=== PATIENT | male | born 1985 | race Caucasian/White ===

== ENCOUNTER 2023-12-24 01:41 | Emergency (ER) | payer OTHER, BC ==
[2023-12-24] MEDS ORDERED: Sodium Chloride 0.9% 2.5 ML Syringe FLUSH PRN (02:14)
[2023-12-24] MEDS ORDERED: Sodium Chloride 0.9% 10 ML Syringe FLUSH PRN (02:14)
[2023-12-24] MEDS ORDERED: Ketorolac 30 MG/ML SDV IVPUSH ONE (02:14)
[2023-12-24] MEDS ORDERED: Sodium Chloride 0.9% 1,000 ML IV ONE (02:14)
[2023-12-24 02:27] LABS: APPEARANCE,URINE CLEAR; BILIRUBIN,URINE NEGATIVE (NEGATIVE); COLOR,URINE YELLOW; GLUCOSE,URINE NEGATIVE (NEGATIVE); KETONES,URINE NEGATIVE (NEGATIVE); LEUKOCYTE ESTERASE,URINE NEGATIVE (NEGATIVE); NITRITE,URINE NEGATIVE (NEGATIVE); OCCULT BLOOD,URINE NEGATIVE (NEGATIVE); PROTEIN,URINE NEGATIVE (NEGATIVE); UROBILINOGEN,URINE 0.2 EU/dL (<2.0)
[2023-12-24 02:31] LABS: BASOPHILS ABSOLUTE AUTO 0.03 K/uL (0.00-0.20); BASOPHILS PERCENT AUTO 0.4 % (0.0-1.0); EOSINOPHILS ABSOLUTE AUTO 0.15 K/uL (0.00-0.45); EOSINOPHILS PERCENT AUTO 1.9 % (0.0-6.0); HEMATOCRIT 45.5 % (42.0-52.0); HEMOGLOBIN 15.5 g/dL (14.0-18.0); IMMATURE GRAN ABSOLUTE AUTO 0.01 K/uL (0.00-0.05); IMMATURE GRAN PERCENT AUTO 0.1 % (0.0-0.4); LYMPHOCYTES ABSOLUTE AUTO 2.47 K/uL (1.00-4.80); LYMPHOCYTES PERCENT AUTO 31.5 % (24.0-44.0); MEAN CORPUSCULAR HEMOGLOBIN 30.4 pg (28.0-32.0); MEAN CORPUSCULAR HGB CONC 34.1 g/dL (32.0-36.0); MEAN CORPUSCULAR VOLUME 89.2 fL (83.0-99.0); MEAN PLATELET VOLUME 9.4 fL (9.4-12.4); MONOCYTES PERCENT AUTO 10.2 % (0.0-8.0); NEUTROPHILS ABSOLUTE AUTO 4.39 K/uL (1.80-7.70); NEUTROPHILS PERCENT AUTO 55.9 % (41.0-71.0); PLATELET COUNT,PLT 235 K/uL (150-400); WHITE BLOOD CELL COUNT,WBC 7.85 K/uL (3.9-11.3)
[2023-12-24 02:38] LABS: RBC,URINE NONE SEEN (0-2/HPF); WBC,URINE NONE SEEN (0-5/HPF)
[2023-12-24 02:39] LABS: BACTERIA,URINE RARE (NEGATIVE); EPITHELIAL CELLS,URINE RARE (NONE-FEW)
[2023-12-24 02:54] LABS: A/G RATIO 1.1 (0.9-1.6); ALBUMIN 3.6 g/dL (3.4-5.0); BILIRUBIN TOTAL 0.4 mg/dL (0.2-1.0); CALCIUM 8.5 mg/dL (8.5-10.1); CREATININE 1.1 mg/dL (0.8-1.3); EST CRCL DRUG DOSING (CG) 105.86 mL/min; POTASSIUM,K 3.6 mmol/L (3.5-5.1)
[2023-12-24] MEDS ORDERED: Iopamidol 755 MG/ML 500 ML Multipack Bottle IVPUSH ONE (03:07)
[2023-12-24] MEDS ORDERED: Naloxone 0.4 MG/ML SDV IVPUSH PRN (03:11)
[2023-12-24] MEDS ORDERED: Morphine 4 MG/ML Syringe IVPUSH PRN (03:11)
== END 2023-12-24 04:36 | disposition home or self-care (01) ==
LOC: MW.ED 01:41
DX: K63.89 Other specified diseases of intestine (principal)
CPT/HCPCS: 36415; 74177; 80053; 81001; 85025; 96374; 96375; 99284; J1885; J2270; J3490; J7030; Q9967

== ENCOUNTER 2024-04-27 02:21 | Emergency (ER) | payer OTHER, BC ==
[2024-04-27] MEDS: Aspirin 81 MG Tab.Chew PO ONE (02:37)
[2024-04-27] MEDS: Sodium Chloride 0.9% 10 ML Syringe FLUSH PRN (02:38)
[2024-04-27] MEDS: Sodium Chloride 0.9% 2.5 ML Syringe FLUSH PRN (02:38)
[2024-04-27 02:45] LABS: BASOPHILS ABSOLUTE AUTO 0.02 K/uL (0.00-0.20); BASOPHILS PERCENT AUTO 0.4 % (0.0-1.0); EOSINOPHILS ABSOLUTE AUTO 0.13 K/uL (0.00-0.45); EOSINOPHILS PERCENT AUTO 2.4 % (0.0-6.0); HEMATOCRIT 43.8 % (42.0-52.0); HEMOGLOBIN 14.8 g/dL (14.0-18.0); IMMATURE GRAN ABSOLUTE AUTO 0.01 K/uL (0.00-0.05); IMMATURE GRAN PERCENT AUTO 0.2 % (0.0-0.4); LYMPHOCYTES ABSOLUTE AUTO 2.07 K/uL (1.00-4.80); LYMPHOCYTES PERCENT AUTO 37.6 % (24.0-44.0); MEAN CORPUSCULAR HEMOGLOBIN 30.5 pg (28.0-32.0); MEAN CORPUSCULAR HGB CONC 33.8 g/dL (32.0-36.0); MEAN CORPUSCULAR VOLUME 90.3 fL (83.0-99.0); MEAN PLATELET VOLUME 9.5 fL (9.4-12.4); MONOCYTES ABSOLUTE AUTO 0.57 K/uL (0.00-0.80); MONOCYTES PERCENT AUTO 10.4 % (0.0-8.0); PLATELET COUNT,PLT 223 K/uL (150-400); RED BLOOD CELL COUNT 4.85 M/uL (4.52-5.90)
[2024-04-27 03:00] LABS: INR 0.95 (0.86-1.11); PTT,PARTIAL THROMBOPLSTIN TIME 26.1 SEC (23.9-30.7)
[2024-04-27 03:13] LABS: A/G RATIO 0.9 (0.9-1.6); BILIRUBIN TOTAL 0.1 mg/dL (0.2-1.0); CARBON DIOXIDE,CO2 24.5 mmol/L (21.0-32.0); CREATININE 1.2 mg/dL (0.8-1.3); EST CRCL DRUG DOSING (CG) 91.61 mL/min; POTASSIUM,K 3.8 mmol/L (3.5-5.1); PROTEIN TOTAL,TP 6.3 g/dL (6.4-8.2)
[2024-04-27] MEDS: Ketorolac 30 MG/ML SDV IVPUSH ONE (03:20)
== END 2024-04-27 05:15 | disposition home or self-care (01) ==
LOC: MW.ED 02:21
DX: R07.89 Other chest pain (principal); Z75.8 Other problems related to medical facilities and other health care
CPT/HCPCS: 36415; 71045; 80053; 82550; 84484; 85025; 85610; 85730; 93005; 96374; 99285; A9270; J1885; J3490; 99283

== ENCOUNTER 2025-03-25 23:21 | Emergency (ER) | payer OTHER, BC ==
[2025-03-26] MEDS: Benzocaine 20% Topical Spray UD MUCMEM ONE (00:53)
[2025-03-26] MEDS: Lidocaine 2% Viscous Solution 15 ML UD PO ONE (00:53)
[2025-03-26] MEDS: Acetaminophen/HYDROcodone 325-5 MG Tab PO ONE (01:53)
[2025-03-26] MEDS: Ibuprofen 800 MG Tab PO ONE (01:53)
== END 2025-03-26 02:03 | disposition home or self-care (01) ==
LOC: MW.ED 23:21
DX: K08.89 Other specified disorders of teeth and supporting structures (principal); Z75.3 Unavailability and inaccessibility of health-care facilities
CPT/HCPCS: 99282; A9270; 99283

== ENCOUNTER 2025-09-01 11:36 | Emergency (ER) | payer BC, OTHER ==
[2025-09-01 11:52] LABS: BASOPHILS ABSOLUTE AUTO 0.03 K/uL (0.00-0.20); BASOPHILS PERCENT AUTO 0.4 % (0.0-1.0); EOSINOPHILS ABSOLUTE AUTO 0.09 K/uL (0.00-0.45); EOSINOPHILS PERCENT AUTO 1.2 % (0.0-6.0); IMMATURE GRAN ABSOLUTE AUTO 0.02 K/uL (0.00-0.05); IMMATURE GRAN PERCENT AUTO 0.3 % (0.0-0.4); LYMPHOCYTES ABSOLUTE AUTO 2.89 K/uL (1.00-4.80); LYMPHOCYTES PERCENT AUTO 37.9 % (24.0-44.0); MEAN PLATELET VOLUME 9.5 fL (9.4-12.4); MONOCYTES ABSOLUTE AUTO 0.53 K/uL (0.00-0.80); MONOCYTES PERCENT AUTO 6.9 % (0.0-8.0); NEUTROPHILS ABSOLUTE AUTO 4.07 K/uL (1.80-7.70); NEUTROPHILS PERCENT AUTO 53.3 % (41.0-71.0); NRBC ABSOLUTE 0.00 K/uL (0.00-0.02); NRBC PERCENT 0.0 /100WBC (0.0-0.2); PLATELET COUNT,PLT 247 K/uL (150-400); RED BLOOD CELL COUNT 5.62 M/uL (4.52-5.90); WHITE BLOOD CELL COUNT,WBC 7.63 K/uL (3.9-11.3)
[2025-09-01 12:15] LABS: INR 0.98 (0.86-1.11)
[2025-09-01 12:27] LABS: A/G RATIO 0.9 (0.9-1.6); ALANINE AMINOTRANSFERASE,ALT 43.0 IU/L (14-63); ASPARTATE AMNIOTRANSFERASE,AST 27.0 IU/L (15-37); BILIRUBIN TOTAL 0.5 mg/dL (0.2-1.0); BLOOD UREA NITROGEN,BUN 12.0 mg/dL (7.0-18.0); CARBON DIOXIDE,CO2 23.8 mmol/L (21.0-32.0); CHLORIDE,CL 104.0 mmol/L (98-107); CREATININE 1.1 mg/dL (0.8-1.3); EST CRCL DRUG DOSING (CG) 103.79 mL/min; GLUCOSE RANDOM 102.0 mg/dL (74-106); POTASSIUM,K 3.6 mmol/L (3.5-5.1); PROTEIN TOTAL,TP 7.9 g/dL (6.4-8.2); SODIUM,NA 142.0 mmol/L (136-148)
[2025-09-01 12:30] LABS: ESTIMATED GFR 87.0 mL/min (>60); PHOSPHORUS 1.0 mg/dL (2.6-4.7); TSH ULTRASENSITIVE 2.06 uIU/mL (0.36-3.74)
[2025-09-01] MEDS ORDERED: Magnesium Sulfate (4.06 MEQ/ML) 5 GM/10 ML SDV IV ONE (12:51)
[2025-09-01] MEDS: Magnesium Sulfat/D5W 1GM/100ML 1 GM in Premix Bag 1 BAG IV ONE (13:10)
[2025-09-01] MEDS: Phosphorus #1 250 MG Tab PO ONE (13:17)
== END 2025-09-01 13:55 | disposition left against medical advice (07) ==
LOC: MW.ED 11:36
DX: I47.10 Supraventricular tachycardia, unspecified (principal); E83.39 Other disorders of phosphorus metabolism; E83.42 Hypomagnesemia; I48.91 Unspecified atrial fibrillation; Z79.899 Other long term (current) drug therapy; Z53.20 Procedure and treatment not carried out because of patient's decision for unspecified reasons
CPT/HCPCS: 36415; 71045; 80053; 83735; 84100; 84443; 84484; 85025; 85610; 93005; 96361; 96365; 96375; 99285; A9270; J0153; J3475; J7030; 93010; 99284